=== PATIENT | female | born 1975 | race Caucasian/White ===

== ENCOUNTER 2020-05-24 12:45 | Emergency (ER) | payer MEDICAID ==
[~2020-05-24] VITALS: Ht 157.5 cm; Wt 83.0 kg
[2020-05-24] MEDS ORDERED: ACETAMINOPHEN 325MG TABLET PO STA (14:14)
[2020-05-24] MEDS ORDERED: LEVOFLOXACIN 750MG PREMIX 150 ML IV ONE (14:15)
[2020-05-24 15:00] LABS: BASOPHILS % 0.3 % (0.0-2.0); HEMATOCRIT. 41.4 % (36.0-48.0); HEMOGLOBIN. 13.7 g/dL (12.0-16.0); LYMPHOCYTES % 10.9 % (20.0-50.0); MEAN CORPUSCULAR VOLUME 87.4 fL (81.0-99.0); MEAN PLATELET VOLUME 8.4 fl (7.4-10.4); NEUTROPHILS % 83.8 % (40.0-76.0); PLATELET 300 x1000/uL (130-400); RED BLOOD CELL COUNT 4.74 mill/uL (4.2-5.4); RED CELL DISTRIBUTION WIDTH 13.5 % (11.6-14.6)
[2020-05-24 15:09] LABS: CHLORIDE 106 mEq/L (98-107); PROTHROMBIN TIME 10.4 sec (9.6-11.0)
[2020-05-24] MEDS ORDERED: DOXYCYCLINE HYCLATE 100MG CAPSULE PO ONE (15:45)
[2020-05-24 17:05] VITALS: BP 124/80
== END 2020-05-24 17:06 | disposition home or self-care (01) ==
LOC: ER 13:25
DX: L03.311 Cellulitis of abdominal wall (principal)
CPT/HCPCS: 36415; 80053; 83605; 85025; 85610; 87040; 93005; 96365; 99284; J1956

== ENCOUNTER 2022-08-08 20:53 | Emergency (ER) | payer MEDICAID ==
[~2022-08-08] VITALS: Ht 157.5 cm; Wt 84.0 kg
[2022-08-08 21:23] VITALS: BP 159/85
[2022-08-08] MEDS ORDERED: VALA100044 MT (22:41)
[2022-08-08] MEDS ORDERED: IBUP-2029 MT (22:41)
== END 2022-08-09 02:08 | disposition home or self-care (01) ==
LOC: ER 20:53
DX: B02.9 Zoster without complications (principal); Z98.890 Other specified postprocedural states; Z88.0 Allergy status to penicillin
CPT/HCPCS: 99281

== ENCOUNTER 2024-08-31 20:48 | Emergency (ER) | payer MEDICAID ==
[~2024-08-31] VITALS: Ht 160 cm; Wt 82.0 kg
[~2024-08-31 20:48] MED LIST: IBUP-2029 MT; VALA100044 MT
[2024-08-31 21:04] VITALS: BP 145/78; PULSE 108; RESP 16; TEMP 36.8; O2SAT 100; O2SAT 98
== END 2024-08-31 23:37 | disposition home or self-care (01) ==
LOC: ER 20:48
DX: G58.8 Other specified mononeuropathies (principal); M25.572 Pain in left ankle and joints of left foot; Z88.0 Allergy status to penicillin; Z98.890 Other specified postprocedural states
CPT/HCPCS: 99284; 73562; 73610; A6449

== ENCOUNTER 2025-04-23 14:26 | Emergency (ER) | payer MEDICAID ==
[~2025-04-23] VITALS: Ht 157.5 cm; Wt 85.0 kg
[~2025-04-23 14:26] MED LIST changes: +IBUP-1455 MT; -IBUP-2029 MT
[2025-04-23 14:40] VITALS: O2SAT 99
[2025-04-23] MEDS ORDERED: DEXAMETHASONE 0.5MG/5ML ORAL SYR PO ONE (19:00)
[2025-04-23] MEDS: DEXAMETHASONE 10 MG/ML VIAL PO ONE (19:44)
[2025-04-23] MEDS ORDERED: FLUT15.844 BOTHNSTRLS (20:22)
[2025-04-23] MEDS ORDERED: SODI90SP BOTHNSTRLS (20:37)
[2025-04-23] MEDS ORDERED: AZIT250T MT (20:37)
[2025-04-23] MEDS ORDERED: OFLO5DRO4 LEFT EAR (20:37)
[2025-04-23 22:19] VITALS: BP 131/78; PULSE 93; RESP 20; TEMP 37; O2SAT 99
== END 2025-04-23 22:26 | disposition home or self-care (01) ==
LOC: ER 14:26
DX: H66.92 Otitis media, unspecified, left ear (principal); H60.92 Unspecified otitis externa, left ear; Z79.899 Other long term (current) drug therapy; Z79.624 Long term (current) use of inhibitors of nucleotide synthesis; Z98.890 Other specified postprocedural states; Z88.0 Allergy status to penicillin
CPT/HCPCS: 99284; 71045; 87430; 87070; J1100